=== PATIENT | female | born 1960 | race Hispanic/Latino ===

== ENCOUNTER 2018-02-13 18:21 | Emergency (ER) | payer OTHER ==
[2018-02-13] MEDS ORDERED: KETOROLAC TROMETHAMINE 60 MG/2 ML VIAL ONE (19:26)
== END 2018-02-13 19:49 | disposition home or self-care (01) ==
LOC: EDH 18:21
DX: S63.591A Other specified sprain of right wrist, initial encounter (principal); S13.4XXA Sprain of ligaments of cervical spine, initial encounter; S90.01XA Contusion of right ankle, initial encounter; W01.0XXA Fall on same level from slipping, tripping and stumbling without subsequent striking against object, initial encounter; Y93.01 Activity, walking, marching and hiking; Y92.89 Other specified places as the place of occurrence of the external cause; Y99.8 Other external cause status
CPT/HCPCS: 73110; 96372; 99284; J1885

== ENCOUNTER 2018-02-22 19:31 | Emergency (ER) | payer OTHER | END 2018-02-22 20:38 | disposition home or self-care (01) | LOC: EDH 19:31 | DX: M25.561 Pain in right knee (principal); Z90.710 Acquired absence of both cervix and uterus; Z98.890 Other specified postprocedural states | CPT/HCPCS: 73521 ==